=== PATIENT | male | born 1990 ===

== ENCOUNTER 2019-05-23 07:43 | Emergency (ER) | payer OTHER ==
[2019-05-23] MEDS ORDERED: dexAMETHasone 10 MG/ML VIAL ONE (08:28)
[2019-05-23] MEDS ORDERED: Levofloxacin500mg IV 500 MG/100 ML BAG IV ONE (08:29)
[2019-05-23] MEDS ORDERED: IPRATROPIUM BROM 0.5MG/2.5ML ONE (08:29)
[2019-05-23] MEDS ORDERED: ALBUTEROL 2.5 MG/3 ML NEB SOL ONE ×2 (08:29→09:45)
[2019-05-23] MEDS ORDERED: predniSONE 20 MG TAB ONE (08:29)
[2019-05-23] MEDS ORDERED: NA CHLORIDE 0.9% 1,000 ML ONE (08:29)
[2019-05-23 08:33] LABS: Absolute Lymphocytes (CBC) 2.4 K/uL (0.7-4.9); Basophils % 0.8 % (0-1.3); Hematocrit 45.1 % (39.6-49.0); Lymphocytes % 31.7 % (15.3-44.8); MPV 9.4 fL (7.6-11.3); RBC Red Blood Cell Count 5.02 M/uL (4.33-5.43)
[2019-05-23 08:48] LABS: Albumin 4.2 g/dL (3.4-5.0); Bilirubin Total 0.5 mg/dL (0.2-1.0); Potassium 3.5 mmol/L (3.5-5.1); Protein, Total 8.2 g/dL (6.4-8.2)
--- NOTE | 2019-05-23 10:28 | ER ---
Nurse's Notes [facility] Name: Hernan Angeles Age: 28 yrs Sex: Male : 1990 Arrival Date: 05/23/2019 Time: 07:47 Bed 15 Private MD: Diagnosis: Asthma;Dyspnea Presentation: 05/23 07:48 Presenting complaint: EMS states: SOB began last night at 2200, denies hx. Transition jl7 of care: patient was not received from another setting of care. Onset of symptoms was May 22, 2019 at 22:00. Risk Assessment: Do you want to hurt yourself or someone else? Patient reports no desire to harm self or others. Initial Sepsis Screen: Does the patient meet any 2 criteria? No. Patient's initial sepsis screen is negative. Does the patient have a suspected source of infection? No. Patient's initial sepsis screen is negative. Care prior to arrival: Medication(s) given: Albuterol Neb Atrovent Neb IV initiated. 20 GA, in the left antecubital area, Oxygen administered. via a nebulizer mask. 07:48 Method Of Arrival: EMS: [facility] jl7 07:48 Acuity: OBI 3 jl7 Triage Assessment: 07:50 General: Appears in no apparent distress. uncomfortable, Behavior is calm, cooperative, jl7 appropriate for age. Pain: Denies pain. EENT: No signs and/or symptoms were reported regarding the EENT system. Neuro: Level of Consciousness is awake, alert, obeys commands, Oriented to person, place, time, situation. Cardiovascular: Heart tones present Patient's skin is warm and dry. Respiratory: Reports shortness of breath at rest Onset: The symptoms/episode began/occurred suddenly, the patient reports symptoms have resolved. Derm: Skin is pink, warm \T\ dry. Historical: - Allergies: 07:50 No Known Allergies; jl7 - Home Meds: 07:50 None [Active]; jl7 - PMHx: 07:50 None; jl7 - Immunization history:: Adult Immunizations up to date. - Social history:: Smoking status: Patient/guardian denies using tobacco. - Ebola Screening: : No symptoms or risks identified at this time. - Family history:: not pertinent. Screenin:44 Abuse screen: Denies threats or abuse. Denies injuries from another. Nutritional jl7 screening: No deficits noted. Tuberculosis screening: No symptoms or risk factors identified. Fall Risk IV access (20 points). Total [place] Fall Scale indicates No Risk (0-24 pts). Assessment: 07:50 General: See triage assessment. jl7 09:34 Reassessment: Patient appears in no apparent distress at this time. Patient and/or jl7 family updated on plan of care and expected duration. Pain level reassessed. Patient is alert, oriented x 3, equal unlabored respirations, skin warm/dry/pink. Patient states feeling better. Patient states symptoms have improved. Cardiovascular: Rhythm is regular. Respiratory: Airway is patent Respiratory effort is even, unlabored, Respiratory pattern is regular, symmetrical, Breath sounds are clear bilaterally. Vital Signs: 07:50 BP 126 / 87; Pulse 68; Resp 16 S; Temp 98.4(O); Pulse Ox 95% on R/A; Pain 0/10; jl7 09:00 BP 136 / 88; Pulse 103; Resp 16; Pulse Ox 99% on Nebulizer Mask; jl7 09:34 BP 121 / 75; Pulse 95; Resp 16; Pulse Ox 97% on 2 lpm NC; jl7 ED Course: 07:47 Patient arrived in ED. jl7 07:50 Triage completed. jl7 07:50 Arm band placed on right wrist. jl7 07:51 Lyle Farley PA is PHCP. jr8 07:52 Daniel Valerio MD is Attending Physician. jr8 08:10 Initial lab(s) drawn, by [facility], sent to lab. Maintain EMS IV. Dressing intact. Site clean jl7 \T\ dry. Gauge \T\ site: 20 g left ac. 08:26 Renetta Feldman, RN is Primary Nurse. jl7 08:44 Patient has correct armband on for positive identification. Bed in low position. Call jl light in reach. Side rails up X 1. Security at bedside. Pulse ox on. NIBP on. 09:20 Chest Pa And Lat (2 Views) XRAY In Process Unspecified. EDMS 10:26 Tad Obrien MD is Referral Physician. roque 10:37 No provider procedures requiring assistance completed. IV discontinued, intact, hb bleeding controlled, No redness/swelling at site. Pressure dressing applied. Administered Medications: 08:35 Drug: NS 0.9% 1000 ml Route: IV; Rate: 1 bolus; Site: left antecubital; jl7 09:30 Follow up: IV Status: Completed infusion; IV Intake: 1000ml jl7 08:35 Drug: predniSONE 40 mg Route: PO; jl7 09:09 Follow up: Response: No adverse reaction jl7 08:36 Drug: Albuterol - atroVENT (3:1) (2.5 mg - 0.5 mg) 3 ml Route: Nebulizer; jl7 08:55 Follow up: Response: No adverse reaction jl7 08:37 Drug: Decadron - Dexamethasone 10 mg Route: IVP; Site: left antecubital; jl7 09:09 Follow up: Response: No adverse reaction jl7 08:42 Drug: levofloxacin 500 mg Volume: 100 ml; Route: IVPB; Infused Over: 60 mins; Site: [facility] left antecubital; 09:45 Follow up: Response: No adverse reaction; IV Status: Completed infusion 7 09:45 Drug: Albuterol 5 mg Route: Inhalation; jl7 10:00 Follow up: Response: No adverse reaction jl7 Intake: 09:30 IV: 1000ml; Total: 1000ml. 7 Outcome: 10:27 Discharge ordered by . roque 10:37 Discharged to Law Enforcement hb 10:37 Condition: stable 10:37 Discharge instructions given to patient, police, Instructed on discharge instructions, follow up and referral plans. medication usage, Demonstrated understanding of instructions, follow-up care, medications, Prescriptions given X 4. 10:38 Patient left the ED. hb Signatures: Dispatcher [employer] EDDaniel Dorman MD MD cha Roszak, Josh, PA PA jr8 Kary Gallegos, RN RN Renetta Webb RN RN jl7
--- NOTE | 2019-05-23 10:29 | EDPHYS ---
Physician Documentation [facility] Name: Hernan Angeles Age: 28 yrs Sex: Male : 1990 Arrival Date: 05/23/2019 Time: 07:47 Bed 15 Private MD: ED Physician Daniel Valerio HPI: 05/23 08:04 This 28 yrs old Black Male presents to ER via EMS with complaints of Shortness Of roque Breath. 08:04 The patient has shortness of breath at rest, with light activity. Onset: The roque symptoms/episode began/occurred 2 day(s) ago. Duration: The symptoms are continuous, and are steadily getting worse. The patient's shortness of breath has no apparent modifying factors. Associated signs and symptoms: Pertinent positives: non-productive cough. Severity of symptoms: At their worst the symptoms were mild in the emergency department the symptoms are unchanged. The patient has not experienced similar symptoms in the past. Historical: - Allergies: 07:50 No Known Allergies; jl7 - Home Meds: 07:50 None [Active]; jl7 - PMHx: 07:50 None; jl7 - Immunization history:: Adult Immunizations up to date. - Social history:: Smoking status: Patient/guardian denies using tobacco. - Ebola Screening: : No symptoms or risks identified at this time. - Family history:: not pertinent. ROS: 08:04 Constitutional: Negative for fever, chills, and weight loss, Eyes: Negative for injury, roque pain, redness, and discharge, ENT: Negative for injury, pain, and discharge, Neck: Negative for injury, pain, and swelling, Cardiovascular: Negative for chest pain, palpitations, and edema, Abdomen/GI: Negative for abdominal pain, nausea, vomiting, diarrhea, and constipation, Back: Negative for injury and pain, : Negative for injury, bleeding, discharge, and swelling, MS/Extremity: Negative for injury and deformity, Skin: Negative for injury, rash, and discoloration, Neuro: Negative for headache, weakness, numbness, tingling, and seizure, Psych: Negative for depression, anxiety, suicide ideation, homicidal ideation, and hallucinations, Allergy/Immunology: Negative for hives, rash, and allergies, Endocrine: Negative for neck swelling, polydipsia, polyuria, polyphagia, and marked weight changes, Hematologic/Lymphatic: Negative for swollen nodes, abnormal bleeding, and unusual bruising. 08:04 Respiratory: Positive for cough, shortness of breath, wheezing, inspiratory, expiratory. Exam: 08:04 Constitutional: This is a well developed, well nourished patient who is awake, alert, roque and in no acute distress. Head/Face: Normocephalic, atraumatic. Eyes: Pupils equal round and reactive to light, extra-ocular motions intact. Lids and lashes normal. Conjunctiva and sclera are non-icteric and not injected. Cornea within normal limits. Periorbital areas with no swelling, redness, or edema. ENT: Nares patent. No nasal discharge, no septal abnormalities noted. Tympanic membranes are normal and external auditory canals are clear. Oropharynx with no redness, swelling, or masses, exudates, or evidence of obstruction, uvula midline. Mucous membranes moist. Neck: Trachea midline, no thyromegaly or masses palpated, and no cervical lymphadenopathy. Supple, full range of motion without nuchal rigidity, or vertebral point tenderness. No Meningismus. Chest/axilla: Normal chest wall appearance and motion. Nontender with no deformity. No lesions are appreciated. Cardiovascular: Regular rate and rhythm with a normal S1 and S2. No gallops, murmurs, or rubs. Normal PMI, no JVD. No pulse deficits. Abdomen/GI: Soft, non-tender, with normal bowel sounds. No distension or tympany. No guarding or rebound. No evidence of tenderness throughout. Back: No spinal tenderness. No costovertebral tenderness. Full range of motion. Male : Normal genitalia with no discharge or lesions. Skin: Warm, dry with normal turgor. Normal color with no rashes, no lesions, and no evidence of cellulitis. MS/ Extremity: Pulses equal, no cyanosis. Neurovascular intact. Full, normal range of motion. Neuro: Awake and alert, GCS 15, oriented to person, place, time, and situation. Cranial nerves II-XII grossly intact. Motor strength 5/5 in all extremities. Sensory grossly intact. Cerebellar exam normal. Normal gait. Psych: Awake, alert, with orientation to person, place and time. Behavior, mood, and affect are within normal limits. 08:04 Respiratory: mild respiratory distress is noted, Respirations: labored breathing, that is mild, Breath sounds: rhonchi, that are mild, + upper airway congestion. wheezing: inspiratory expiratory 08:04 Musculoskeletal/extremity: DVT Exam: No signs of deep vein thrombosis. no pain, no swelling, no tenderness, negative Homans' sign noted on exam, no appreciated bluish discoloration, no erythema, no increased warmth. Vital Signs: 07:50 BP 126 / 87; Pulse 68; Resp 16 S; Temp 98.4(O); Pulse Ox 95% on R/A; Pain 0/10; jl7 09:00 BP 136 / 88; Pulse 103; Resp 16; Pulse Ox 99% on Nebulizer Mask; 7 09:34 BP 121 / 75; Pulse 95; Resp 16; Pulse Ox 97% on 2 lpm NC; MDM: 07:52 Patient medically screened. jr8 08:20 Data reviewed: vital signs, nurses notes, lab test result(s), EKG, radiologic studies, [facility] plain films. 05/23 07:57 Order name: CBC with Diff; Complete Time: 09:38 [facility] 05/23 07:57 Order name: Comprehensive Metabolic Panel; Complete Time: 08:58 [facility] 05/23 07:57 Order name: Chest Pa And Lat (2 Views) XRAY [facility] Administered Medications: 08:35 Drug: NS 0.9% 1000 ml Route: IV; Rate: 1 bolus; Site: left antecubital; 09:30 Follow up: IV Status: Completed infusion; IV Intake: 1000ml 08:35 Drug: predniSONE 40 mg Route: PO; 09:09 Follow up: Response: No adverse reaction 08:36 Drug: Albuterol - atroVENT (3:1) (2.5 mg - 0.5 mg) 3 ml Route: Nebulizer; 7 08:55 Follow up: Response: No adverse reaction 08:37 Drug: Decadron - Dexamethasone 10 mg Route: IVP; Site: left antecubital; 09:09 Follow up: Response: No adverse reaction 08:42 Drug: levofloxacin 500 mg Volume: 100 ml; Route: IVPB; Infused Over: 60 mins; Site: [facility] left antecubital; 09:45 Follow up: Response: No adverse reaction; IV Status: Completed infusion 09:45 Drug: Albuterol 5 mg Route: Inhalation; jl7 10:00 Follow up: Response: No adverse reaction jl7 Disposition: 05/23/19 10:27 Discharged to Home. Impression: Asthma, Dyspnea. - Condition is Stable. - Discharge Instructions: Asthma, Adult, Asthma, Adult, [id number]. - Prescriptions for Albuterol Sulfate 2.5 mg /3 mL (0.083 %) Inhalation Solution for Nebulization - inhale 1 unit by NEBULIZATION route every 8 hours As needed; 1 box. Zithromax Z- Chapito 250 mg Oral Tablet - take 1 tablet by ORAL route as directed for 5 days Day 1 - take two (2) tablets one time. Day 2, 3, 4 , 5 take one (1) tablet once daily.; 6 tablet. Prednisone 20 mg Oral Tablet - take 2 tablet by ORAL route once daily for 5 days; 10 tablet. Albuterol Sulfate 90 mcg/actuation - inhale 1-2 puff by INHALATION route every 4-6 hours; 1 Inhaler. - Medication Reconciliation Form, Thank You Letter, Antibiotic Education, Prescription Opioid Use form. - Follow up: Private Physician; When: 2 - 3 days; Reason: Recheck today's complaints, Continuance of care, Re-evaluation by your physician. Follow up: Tad Obrien MD; When: 2 - 3 days; Reason: Recheck today's complaints, Re-evaluation by your physician. - Problem is new. - Symptoms have improved. Signatures: Dispatcher [employer] EDMS Daniel Valerio MD MD cha Roszak, Josh, PA PA jr8 Kary Gallegos RN RN Renetta Feldman RN RN jl7 Corrections: (The following items were deleted from the chart) 10:38 10:27 05/23/2019 10:27 Discharged to Home. Impression: Asthma; Dyspnea. Condition is hb Stable. Forms are Medication Reconciliation Form, Thank You Letter, Antibiotic Education, Prescription Opioid Use. Follow up: Private Physician; When: 2 - 3 days; Reason: Recheck today's complaints, Continuance of care, Re-evaluation by your physician. Follow up: Tad Obrien; When: 2 - 3 days; Reason: Recheck today's complaints, Re-evaluation by your physician. Problem is new. Symptoms have improved. roque
--- NOTE | 2019-05-23 10:57 | RAD REPORT ---
EXAM DESCRIPTION: RAD - Chest Pa And Lat (2 Views) - 05/23/2019 9:18 am CLINICAL HISTORY: COUGH Chest pain. COMPARISON: No comparisons FINDINGS: The lungs are clear. The heart is normal in size. No displaced fractures. IMPRESSION: No acute or concerning finding suspected.
== END 2019-05-23 10:38 | disposition home or self-care (01) ==
LOC: ER 07:43
DX: J45.909 Unspecified asthma, uncomplicated (principal)
CPT/HCPCS: 96365; 85025; 36415; 80053; 71046; 94640; 96375; 99285; J7512; J1100; J7030